=== PATIENT | female | born 1955 | race Two or more races ===

== ENCOUNTER 2016-12-04 15:54 | Emergency (ER) | payer OTHER ==
[~2016-12-04] VITALS: Ht 152.4 cm; Wt 80.7 kg
[2016-12-04 16:04] VITALS: BP 195/105
[2016-12-04] MEDS ORDERED: HYDROCODONE/APAP 10/325MG 1 EA TABLET ONE (16:12)
[2016-12-04] MEDS ORDERED: IBUPROFEN 600 MG TABLET PO ONE (16:12)
[2016-12-04] MEDS: IBUPROFEN 600 MG TABLET PO ONE (16:37)
[2016-12-04] MEDS: HYDROCODONE/APAP 10/325MG 1 EA TABLET PO ONE (16:37)
== END 2016-12-04 17:29 | disposition home or self-care (01) ==
LOC: ER 15:59
DX: M25.561 Pain in right knee (principal); M25.562 Pain in left knee; G89.29 Other chronic pain; I10 Essential (primary) hypertension
CPT/HCPCS: 73564 ×2; 99284; A4606; Z7610